=== PATIENT | female | born 1960 | race Caucasian/White ===

== ENCOUNTER → 2017-08-21 13:27 | Outpatient (REF) | payer MEDICAID, SELFPAY ==
[2017-08-21 20:18] LABS: Amphetamine/Metha Screen,Urine Negative ng/mL (<1000); Barbiturates Screen,Urine Negative ng/mL (<200); Benzodiazepines Screen,Urine Negative ng/mL (200); Cannabinoid Screen,Urine Negative ng/mL (<50); Cocaine Screen,Urine Negative ng/g (<300); Methadone Screen,Urine Negative ng/mL (<300); Opiate Screen,Urine Negative ng/mL (<300); Phencyclidine Screen,Urine Negative ng/mL (<25)
== END ==
LOC: LAB 13:27
PROVIDERS: Visit Provider Nurse Practitioner Family
DX: Z79.899 Other long term (current) drug therapy (principal)
CPT/HCPCS: 80305

== ENCOUNTER → 2019-02-22 17:10 | Outpatient (CLI) | payer MEDICAID, SELFPAY ==
[2019-02-22 17:57] LABS: Basophils # 0.1 K/mm3 (0-0.2); Basophils % 0.9 % (0.1-2.0); Eosinophils # 0.3 K/mm3 (0.0-0.4); Eosinophils % 4.5 % (0.1-12.0); Hemoglobin 14.5 g/dL (12.2-16.2); Lymphocytes # 2.4 K/mm3 (0.7-4.5); Lymphocytes % 31.5 % (10-50); Mean Corpuscular HGB Conc 32.9 g/dL (31.8-35.4); Mean Corpuscular Hemoglobin 30.7 pg (27.0-31.2); Mean Corpuscular Volume 93.3 fl (81-99); Mean Platelet Volume 8.5 fl (7.4-10.4); Monocytes # 0.5 K/mm3 (0.1-1.0); Monocytes % 6.3 % (1.7-9.3); Neutrophils # 4.3 K/mm3 (1.8-7.8); Neutrophils % 56.9 % (37.0-80.0); Platelet Count 429 K/mm3 (142-424); Red Blood Count 4.71 M/mm3 (4.20-5.40); Red Cell Distribution Width 13.2 % (11.5-17.5); White Blood Count 7.5 K/mm3 (4.8-10.8)
[2019-02-22 18:13] LABS: Alanine Aminotransferase 25 U/L (12-78); Albumin Level 3.7 gm/dL (3.4-5.0); Albumin/Globulin Ratio 1.1 (1.1-1.8); Alkaline Phosphatase 96 U/L (46-116); Anion Gap 14.9 mEq/L (5-15); Aspartate Amino Transferase 14 U/L (15-37); Bilirubin,Total 0.4 mg/dL (0.2-1.0); Blood Urea Nitrogen 15 mg/dL (7-18); Calcium 9.7 mg/dL (8.5-10.1); Carbon Dioxide 27 mmol/L (21.0-32.0); Chloride 98 mmol/L (98-107); Chol/HDL Ratio 5.2 (1-3.5); Cholesterol 198 mg/dL (140-200); Creatinine,Serum 1.23 mg/dL (0.55-1.02); Estimated Glomerular Filt Rate 45 ml/min (>60); Free T4 (Free Thyroxine) 0.91 ng/dl (0.76-1.46); GFR (African American) 54 ML/MIN (>60); Globulin 3.5 gm/dl (1.3-3.2); Glucose 111 mg/dL (74-106); HDL Cholesterol 38 mg/dL (29-89); LDL Cholesterol 113 mg/dL (0-130); Potassium 3.9 mmoL/L (3.5-5.1); Sodium 136 mmol/L (136-145); Thyroid Stimulating Hormone 0.83 uIU/ml (0.358-3.740); Total Protein,Serum 7.2 gm/dL (6.4-8.2); Triglycerides 237 mg/dL (30-200); VLDL Cholesterol 47 mg/dL (0-40)
[2019-02-25 06:12] LABS: Vitamin D 25 Hydroxy 7.1 ng/mL (30.0-100.0)
== END ==
PROVIDERS: Visit Provider Emergency Medicine
DX: R53.83 Other fatigue (principal); R73.09 Other abnormal glucose; R77.9 Abnormality of plasma protein, unspecified; Z87.898 Personal history of other specified conditions; E55.9 Vitamin D deficiency, unspecified
CPT/HCPCS: 80053; 80061; 82652; 84439; 84443; 85025

== ENCOUNTER → 2019-03-04 11:33 | Outpatient (CLI) | payer MEDICAID, SELFPAY ==
[2019-03-04 12:35] VITALS: PULSE 86; PULSE 89
== END ==
PROVIDERS: PCP Emergency Medicine; Visit Provider Emergency Medicine
DX: R06.02 Shortness of breath (principal)
CPT/HCPCS: 94060; 94618; 94640; 94726; 94729

== ENCOUNTER → 2019-05-23 14:14 | Outpatient (CLI) | payer MEDICAID, SELFPAY ==
[2019-05-23 16:47] LABS: Amphetamine/Metha Screen,Urine Negative ng/mL (<1000); Barbiturates Screen,Urine Negative ng/mL (<200); Benzodiazepines Screen,Urine Negative ng/mL (<200); Cannabinoid Screen,Urine Negative ng/mL (<50); Cocaine Screen,Urine Negative ng/mL (<300); Methadone Screen,Urine Negative ng/mL (<300); Opiate Screen,Urine Negative ng/mL (<300); Phencyclidine Screen,Urine Negative ng/mL (<25)
== END ==
PROVIDERS: Visit Provider Nurse Practitioner Family
DX: Z79.899 Other long term (current) drug therapy (principal)
CPT/HCPCS: 80305

== ENCOUNTER → 2019-09-02 09:12 | Outpatient (CLI) | payer MEDICAID, SELFPAY ==
--- NOTE | 2019-09-02 09:12 | MM_ITS ---
PROCEDURE: MM DIG SCREENING MAMM BI W/CAD CLINICAL INDICATION: screening There is a history of breast cancer patient's maternal cousin. COMPARISON: The patient had previous mammograms at [facility] but they have been purged TECHNIQUE: Standard CC and MLO images and 3D Tomosynthesis was obtained. R2 CAD reviewed. FINDINGS: Scattered fibroglandular densities are seen in both breasts. There are somewhat prominent veins inner quadrants of both breasts. There is no suspicious lesion and no suspicious microcalcifications. [place] images were reviewed. IMPRESSION: Fibrofatty parenchyma with no suspicious lesions seen BI-RAD Category: 2 Benign Finding(s) FOLLOW-UP: 1YR 1 Year Follow-up (A letter has been sent to the patient regarding results of the study.) Dictated by: Dr. Jesus Stiles MD 09/04/2019 08:[address] Jesus Stiles MD in [place] 09/04/2019 08:53
== END ==
PROVIDERS: PCP Nurse Practitioner Family; Visit Provider Emergency Medicine
DX: Z12.31 Encounter for screening mammogram for malignant neoplasm of breast (principal)
CPT/HCPCS: 77063; 77067

== ENCOUNTER → 2020-02-27 13:18 | Outpatient (CLI) | payer MEDICAID, SELFPAY | PROVIDERS: Visit Provider Physician Assistant | DX: M54.9 Dorsalgia, unspecified (principal); N39.0 Urinary tract infection, site not specified | CPT/HCPCS: 87086 ==

== ENCOUNTER → 2020-05-08 15:16 | Outpatient (CLI) | payer MEDICAID, SELFPAY ==
--- NOTE | 2020-05-08 15:18 | CA_ITS ---
APPROVED REPORT Right Lower Extremity Venous Study for DVT. Senior Mechanical Project Engineer: DANIKA Indications Lower Extremity Pain: Right Current Smoker Patient states a knot showed up on her lateral knee area 05/03/20. Patient states no known trauma. Risk Factors Obesity Current Smoker Vein Imaging CFV (R): compressive, spontaneous, phasic, augmentation FEM (R): compressive, spontaneous, phasic, augmentation POP (R): compressive, spontaneous, phasic, augmentation PTV (R): Compressible GSV (R): compressive, spontaneous, phasic, augmentation SSV (R): Compressible Peroneals (R):Compressible GAS (R): Compressible Findings No evidence of DVT in the veins scanned of the right lower extremity. Superficial thrombophlebitis seen in the RLE in area of concern. Conclusion No evidence of DVT in the veins scanned of the right lower extremity. Superficial thrombophlebitis seen in the RLE in area of concern. Electronically signed by : Roger Gustafson MD 05/09/2020 17:25:52
== END ==
PROVIDERS: PCP Emergency Medicine; Visit Provider Emergency Medicine
DX: M79.604 Pain in right leg (principal)
CPT/HCPCS: 93971

== ENCOUNTER → 2020-05-08 16:00 | Outpatient (CLI) | payer MEDICAID, SELFPAY ==
[2020-05-08 16:28] LABS: Basophils # 0.1 K/mm3 (0-0.2); Basophils % 0.8 % (0.1-2.0); Eosinophils # 0.3 K/mm3 (0.0-0.4); Eosinophils % 2.6 % (0.1-12.0); Hematocrit 48.6 % (37.0-47.0); Hemoglobin 15.6 g/dL (12.2-16.2); Lymphocytes # 3.2 K/mm3 (0.7-4.5); Lymphocytes % 32.5 % (10-50); Mean Corpuscular HGB Conc 32.1 g/dL (31.8-35.4); Mean Corpuscular Hemoglobin 30.6 pg (27.0-31.2); Mean Corpuscular Volume 95.3 fl (81-99); Mean Platelet Volume 7.8 fl (7.4-10.4); Monocytes # 0.4 K/mm3 (0.1-1.0); Neutrophils # 5.8 K/mm3 (1.8-7.8); Neutrophils % 60.1 % (37.0-80.0); Platelet Count 370 K/mm3 (142-424); Red Cell Distribution Width 13.4 % (11.5-17.5); White Blood Count 9.7 K/mm3 (4.8-10.8)
[2020-05-08 16:59] LABS: Erythrocyte Sedimentation Rate 17 mm/hr (0-30)
[2020-05-08 18:17] LABS: Alanine Aminotransferase 27 U/L (12-78); Albumin Level 4.6 g/dl (3.5-5.0); Albumin/Globulin Ratio 1.4 (1.1-1.8); Alkaline Phosphatase 90 U/L (38-126); Anion Gap 13.8 mEq/L (5-15); Aspartate Amino Transferase 31 U/L (14-36); Bilirubin,Total 0.5 mg/dl (0.2-1.3); Blood Urea Nitrogen 22 mg/dl (7-17); Calcium 10.7 mg/dl (8.4-10.2); Carbon Dioxide 30 mmol/L (22.0-30.0); Chloride 101 mmol/L (98-107); Estimated Glomerular Filt Rate 51 ml/min (>60); GFR (African American) 62 ML/MIN (>60); Globulin 3.2 g/dL (1.3-3.2); Glucose 105 mg/dl (74-100); Potassium 4.8 mmoL/L (3.5-5.1); Sodium 140 mmol/L (136-145); Total Protein,Serum 7.8 g/dl (6.3-8.2)
[2020-05-08 19:08] LABS: Vitamin B12 861 pg/mL (239-931)
[2020-06-09 20:15] LABS: Antinuclear Antibodies (ANA) POSITIVE ABNORMAL
== END ==
PROVIDERS: Visit Provider Nurse Practitioner Family
DX: G43.719 Chronic migraine without aura, intractable, without status migrainosus (principal); G47.30 Sleep apnea, unspecified; G89.29 Other chronic pain; I61.9 Nontraumatic intracerebral hemorrhage, unspecified; M25.552 Pain in left hip; M79.604 Pain in right leg; M79.605 Pain in left leg; R51.9 Headache, unspecified; R53.83 Other fatigue; Z68.39 Body mass index [BMI] 39.0-39.9, adult; Z72.0 Tobacco use; Z86.69 Personal history of other diseases of the nervous system and sense organs
CPT/HCPCS: 36415; 80053; 82607; 85025; 85651; 86038

== ENCOUNTER → 2020-05-09 10:33 | Outpatient (CLI) | payer MEDICAID, SELFPAY ==
--- NOTE | 2020-05-09 10:34 | MR_ITS ---
PROCEDURE: MR HEAD/BRAIN WO/W CON CLINICAL INDICATION: acute on chronic headaches, PT C/O H/A X 2 WEEKS WITH HX OF BRAIN SURGERY TO REMOVE TUMOR IN 2009 AND HEMORRHAGIC STROKE IN 2008. COMPARISON: No exams were available for comparison TECHNIQUE: Routine multiplanar multi echo sequences are performed without gadolinium enhancement. FINDINGS: No midline shift, mass effect, acute intracranial hemorrhage, or hydrocephalus is evident. There is no evidence of acute infarction. There are scattered periventricular and subcortical T2 white matter hyperintensities as well as increased T2 signal within the hien and may represent ischemic gliotic change from microvascular disease. There is an area of decreased T1 and decreased T2 signal within the left aspect of the lower hien on the left. This does not demonstrate contrast enhancement and may represent an old area of hemorrhage with hemosiderin deposition.. No enhancing lesions are evident. The pituitary, optic chiasm, corpus callosum, and craniocervical junction have an unremarkable appearance. No mastoid effusion or sinus air-fluid level. There is mucosal thickening of the ethmoid sinuses on both sides left more so than right. There is fat signal intensity within the left mastoid region with some indentation upon the mastoid eminence at this area suggesting prior mastoid surgery. There is minimal amount artifact at this region as well which could be due to metallic fragment. IMPRESSION: 1. No acute intracranial findings. 2. Scattered subcortical T2 white matter hyperintensities which may reflect ischemic gliotic change from microvascular disease. Differential diagnosis includes migraine headache and demyelinating process. 3. Decreased T1 and T2 signal in the left aspect of the lower hien measuring approximately 9 mm and may reflect a old area of hemorrhage. 4. Postsurgical changes left mastoid region. 5. Ethmoid sinus disease Dictated by: Roger Gustafson MD 05/10/2020 10:24 Roger Gustafson MD in [place] 05/10/2020 10:24
--- NOTE | 2020-05-09 10:34 | MR_ITS ---
PROCEDURE: MR ANGIO HEAD WO CON CLINICAL INDICATION: acute on chronic headaches, history of hem CVA PT C/O H/A X 2 WEEKS WITH HX OF BRAIN SURGERY TO REMOVE TUMOR IN 2009 AND HEMORRHAGIC STROKE IN 2008. COMPARISON: No exams were available for comparison TECHNIQUE: Routine multiplanar multi echo sequences are performed without gadolinium enhancement. FINDINGS: No aneurysm, arteriovenous malformation, or major intracranial occlusive process is evident. There is persistent origin of the left posterior cerebral artery as a normal variant. Single-shot MRV shows no obvious sagittal sinus thrombosis. IMPRESSION: Negative MRA of the brain Dictated by: Roger Gustafson MD 05/10/2020 10:43 Roger Gustafson MD in [place] 05/10/2020 10:43
--- NOTE | 2020-05-09 12:08 | XR_ITS ---
PROCEDURE: XR HIP LT 2-3V W/PELVIS CLINICAL INDICATION: left hip pain COMPARISON: No exams were available for comparison FINDINGS: There are minimal osteoarthritic changes of the left hip. Along the inferior aspect of the left femoral neck there is a rounded calcific density measuring 12 mm suggesting a loose body. No fracture or dislocation. No lytic or blastic change. IMPRESSION: Mild osteoarthritic change left hip with loose body along the inferior aspect of the femoral neck Dictated by: Roger Gustafson MD 05/09/2020 12:42 Roger Gustafson MD in [place] 05/09/2020 12:42
--- NOTE | 2020-05-09 12:10 | XR_ITS ---
PROCEDURE: XR HIP RT 2-3V W/PELVIS CLINICAL INDICATION: HIP PAIN COMPARISON: No exams were available for comparison FINDINGS: Minimal osteoarthritic change. No fracture or dislocation. No lytic or blastic change. IMPRESSION: Minimal osteoarthritic change right hip Dictated by: Roger Gustafson MD 05/09/2020 12:41 Roger Gustafson MD in [place] 05/09/2020 12:41
== END ==
PROVIDERS: PCP Emergency Medicine; Visit Provider Specialist
DX: G43.719 Chronic migraine without aura, intractable, without status migrainosus (principal); R51.9 Headache, unspecified; I61.9 Nontraumatic intracerebral hemorrhage, unspecified; G47.30 Sleep apnea, unspecified; Z68.39 Body mass index [BMI] 39.0-39.9, adult; Z72.0 Tobacco use
CPT/HCPCS: 70544; 70553; 73502; A9576

== ENCOUNTER → 2020-05-30 13:20 | Outpatient (CLI) | payer MEDICAID, SELFPAY ==
[2020-05-30 15:10] LABS: Coronavirus 19 IgG Antibody Negative (Negative); Coronavirus 19 IgM Antibody Negative (Negative)
== END ==
PROVIDERS: Visit Provider Nurse Practitioner Family
DX: Z01.818 Encounter for other preprocedural examination (principal); G47.33 Obstructive sleep apnea (adult) (pediatric)
CPT/HCPCS: 36415; 86328

== ENCOUNTER → 2020-06-05 10:39 | Outpatient (POV) | payer MEDICAID, SELFPAY | PROVIDERS: Visit Provider Otolaryngology | DX: Z00.00 Encounter for general adult medical examination without abnormal findings (principal) ==

== ENCOUNTER → 2020-08-21 12:16 | Outpatient (CLI) | payer MEDICAID, SELFPAY ==
[2020-08-21 14:22] LABS: Coronavirus 19 IgG Antibody Negative (Negative); Coronavirus 19 IgM Antibody Negative (Negative)
== END ==
PROVIDERS: Visit Provider Specialist
DX: Z01.812 Encounter for preprocedural laboratory examination (principal)
CPT/HCPCS: 36415; 86328

== ENCOUNTER → 2020-08-22 20:03 | Outpatient (CLI) | payer MEDICAID, SELFPAY | PROVIDERS: PCP Emergency Medicine; Visit Provider Specialist | DX: G47.33 Obstructive sleep apnea (adult) (pediatric) (principal); E66.9 Obesity, unspecified | CPT/HCPCS: 95810 ==

== ENCOUNTER 2021-03-15 16:29 | Inpatient (IN) | payer MEDICAID, SELFPAY ==
[2021-03-15] VITALS (9 sets, daily range): BP systolic 91–141; BP diastolic 50–90; PULSE 70–117; RESP 16–20; TEMP 36.6–37; O2SAT 93–98; BMI 37.8; BMI 38.0
--- NOTE | 2021-03-15 16:46 | HMH.EDGENADL ---
ED Disposition Clinical Impression: NELL (acute kidney injury), Transaminitis, Lesion of bladder Abdominal pain Qualifiers: Abdominal location: generalized Qualified Code(s): R10.84 - Generalized abdominal pain Sepsis Qualifiers: Sepsis type: sepsis due to unspecified organism Sepsis acute organ dysfunction status: with acute organ dysfunction Severe sepsis acute organ dysfunction type: acute renal failure Acute renal failure type: unspecified Severe sepsis shock status: without septic shock Qualified Code(s): A41.9 - Sepsis, unspecified organism; R65.20 - Severe sepsis without septic shock; N17.9 - Acute kidney failure, unspecified Sepsis with acute liver failure and septic shock Qualifiers: Sepsis type: sepsis due to unspecified organism Hepatic coma status: without hepatic coma Qualified Code(s): A41.9 - Sepsis, unspecified organism; R65.21 - Severe sepsis with septic shock; K72.00 - Acute and subacute hepatic failure without coma Disposition: Admitted As Inpatient Condition on Discharge: Fair Instructions: DI for Acute Abdominal Pain Referrals: Cipriano Clark MD [Primary Care Provider] - Time of Disposition: 19:18 - Critical Care Critical Care Time: Yes Attestation: On 03/15/21, the high probability of a clinically significant, sudden or life threatening deterioration of the following system(s) required my full and direct attention, intervention and personal management. The time I documented below is in addition to time spent performing reported procedures but includes the following listed in this critical care notation. Total Critical Care Time: 35 Vital system(s) involved:: Renal Failure, Shock (Septic) My critical care processes included: Assessment & monitoring of V/S, Initial and Re-exams, Data Review/Interpretation, Coordinating Care, Medication Orders and management, Documentation Medical Decision Making - Medical Records Medical records reviewed: Yes: I reviewed the patient's medical records. - Elian Inquiry Pt receiving controlled substance: No Vital Signs: 03/15/21 16:29 Temperature 98.6 F Temperature Source Oral Pulse Rate [Radial] 117 H Respiratory Rate 16 Blood Pressure [Right Arm] 104/63 L Blood Pressure Mean [Right Arm] 76 Blood Pressure Position [Right Arm] Sitting 02 Sat by Pulse Oximetry 98 Oxygen Delivery Method Room Air - Lab Data Lab results reviewed: Yes: I reviewed the patient's lab results. Lab Results 03/15/21 16:58: WBC 20.4 H*, RBC 5.42 H, Hgb 16.4 H, Hct 50.9 H, MCV 94.0, MCH 30.3, MCHC 32.3, RDW 13.7, Plt Count 462 H, MPV 9.1, Neut % (Auto) 86.5 H, Lymph % (Auto) 6.9 L, [place] % (Auto) 5.4, Eos % (Auto) 0.5, Baso % (Auto) 0.6, Neut # (Auto) 17.7 H, Lymph # (Auto) 1.4, [place] # (Auto) 1.1 H, Eos # (Auto) 0.1, Baso # (Auto) 0.1, Total Counted 100, Neutrophils % (Manual) 85 H, Lymphocytes % (Manual) 7 L, Monocytes % (Manual) 8, Platelet Estimate Normal, RBC Morphology Normal 03/15/21 16:58: Sodium 128 L, Potassium 4.9, Chloride 87 L, Carbon Dioxide 16 L, Anion Gap 29.9 H, BUN 103 H*, Creatinine 5.50 H, Estimated Creat Clear 16, Estimated GFR 8 L*, Est GFR ( Amer) 10 L*, Glucose 132 H, Calcium 8.9, Total Bilirubin 1.0, AST 647 H*, ALT 918 H*, Alkaline Phosphatase 101, Total Protein 8.2, Albumin 4.2, Globulin 4.0 H, Albumin/Globulin Ratio 1.1 03/15/21 16:58: Lipase 32 03/15/21 18:00: Lactate 2.7 H 03/15/21 18:40: Urine Color Yellow, Urine Appearance Clear, Urine pH 5.0, Ur Specific [place] 1.025, Urine Protein 1+, Urine Glucose (UA) Negative, Urine Ketones Negative, Urine Blood 3+, Urine Nitrate Negative, Urine Bilirubin 2+ A, Urine Urobilinogen 1.0, Ur Leukocyte Esterase 3+ A Result diagrams: 03/15/21 16:58 03/15/21 16:58 Orders (Tests/Meds): ED MEDICATIONS Generic Name Dose Route Start Last Admin Trade Name Freq PRN Reason Stop Dose Admin Lactated Ringer's 1,000 mls @ 999 mls/hr 03/15/21 17:15 03/15/21 17:20 Lactated Ringer's 1000 Ml Bag IV 03/15/21 18:15
[2021-03-15 17:17] LABS: Chloride 87 mmol/L (98-107)
[2021-03-15 17:18] LABS: Potassium 4.9 mmoL/L (3.5-5.1); Sodium 128 mmol/L (136-145)
[2021-03-15 17:20] LABS: Alkaline Phosphatase 101 U/L (38-126); Aspartate Amino Transferase 647 U/L (14-36); Carbon Dioxide 16 mmol/L (22.0-30.0); Lipase 32 U/L (23-300)
[2021-03-15 17:21] LABS: Albumin Level 4.2 g/dl (3.5-5.0); Albumin/Globulin Ratio 1.1 (1.1-1.8); Basophils # 0.1 K/mm3 (0-0.2); Basophils % 0.6 % (0.1-2.0); Calcium 8.9 mg/dl (8.4-10.2); Eosinophils # 0.1 K/mm3 (0.0-0.4); Eosinophils % 0.5 % (0.1-12.0); Glucose 132 mg/dl (74-100); Hematocrit 50.9 % (37.0-47.0); Hemoglobin 16.4 g/dL (12.2-16.2); Lymphocytes # 1.4 K/mm3 (0.7-4.5); Lymphocytes % 6.9 % (10-50); Mean Corpuscular HGB Conc 32.3 g/dL (31.8-35.4); Mean Corpuscular Hemoglobin 30.3 pg (27.0-31.2); Mean Platelet Volume 9.1 fl (7.4-10.4); Monocytes # 1.1 K/mm3 (0.1-1.0); Monocytes % 5.4 % (1.7-9.3); Neutrophils # 17.7 K/mm3 (1.8-7.8); Neutrophils % 86.5 % (37.0-80.0); Platelet Count 462 K/mm3 (142-424); Red Blood Count 5.42 M/mm3 (4.20-5.40); Red Cell Distribution Width 13.7 % (11.5-17.5); Total Protein,Serum 8.2 g/dl (6.3-8.2); White Blood Count 20.4 K/mm3 (4.8-10.8)
[2021-03-15 17:22] LABS: Anion Gap 29.9 mEq/L (5-15)
[2021-03-15 17:27] LABS: Alanine Aminotransferase 918 U/L (12-78); Creatinine Clearance Estimated 16 mL/min (50-200); Estimated Glomerular Filt Rate 8 ml/min (>60); GFR (African American) 10 ML/MIN (>60)
[2021-03-15 17:28] LABS: Blood Urea Nitrogen 103 mg/dl (7-17)
[2021-03-15 17:32] LABS: MANUAL DIFFERENTIAL MANUAL DIFFERENTIAL (MANUAL DIFF)
--- NOTE | 2021-03-15 17:39 | PC.NURSE ---
lab called critical of BUN 103 Creat 5.50. notified
--- NOTE | 2021-03-15 17:42 | CT_ITS ---
PROCEDURE INFORMATION: Exam: CT Abdomen And Pelvis Without Contrast Exam date and time: 03/15/2021 5:42 PM Age: 61 years old Clinical indication: Abdominal tenderness and nausea and other: Dehydration and diarrhea; Prior surgery; Surgery date: 6+ months; Surgery type: C section, appendix, gb; Additional info: V/d, diffuse pain, dehydration TECHNIQUE: Imaging protocol: Computed tomography of the abdomen and pelvis without contrast. Radiation optimization: All CT scans at this facility use at least one of these dose optimization techniques: automated exposure control; mA and/or kV adjustment per patient size (includes targeted exams where dose is matched to clinical indication); or iterative reconstruction. COMPARISON: CR XR HIP LT 2-3V W/PELVIS 05/09/2020 12:12 PM FINDINGS: Lungs: Calcified pulmonary nodule seen in the right base. Mild bibasilar atelectasis. Liver: Normal. No mass. Gallbladder and bile ducts: Gallbladder is either surgically absent or contracted. Pancreas: Normal. No ductal dilation. Spleen: Normal. No splenomegaly. Adrenal glands: Normal. No mass. Kidneys and ureters: Hyperattenuating bilateral medullary pyramids. No hydronephrosis. Stomach and bowel: Mild diverticulosis noted. No CT evidence of diverticulitis. There is some mild diffuse wall thickening of the colon and small bowel. Numerous loops of mildly dilated small bowel are seen. Mild stranding noted as well. A transition point is not identified. These findings are most compatible with ileus. Obstruction not favored. Appendix: No evidence of appendicitis. Intraperitoneal space: Trace free fluid. Vasculature: Unremarkable. No abdominal aortic aneurysm. Lymph nodes: Mildly prominent retroperitoneal lymph nodes. Urinary bladder: Bladder is under distended. There is a partially calcified structure that appears to be arising from the anterior superior bladder. It measures about 43 x 20 mm in transverse dimensions and about 3 cm in the CC dimension. Reproductive: Status post hysterectomy. Bones/joints: Unremarkable. No acute fracture. Soft tissues: Unremarkable. Other findings: Elevated left hemidiaphragm. IMPRESSION: 1. Findings most compatible with enteritis/colitis and associated ileus. No transition point seen. Consider follow-up abdominal series if obstruction is a clinical concern. 2. There is a calcified soft tissue structure related to the bladder wall. This is concerning for potential neoplasm. Urology referral is recommended. 3. 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
[2021-03-15 18:07] LABS: Lymphocytes % 7 % (10-50); Monocytes % 8 % (2-9); Neutrophils % 85 % (42-76); Platelet Estimate Normal; RBC Morphology Normal; Total Cells Counted 100
[2021-03-15 18:24] LABS: Lactic Acid 2.7 mmol/L (0.7-2.1)
[2021-03-15 18:44] LABS: Microscopic, Urine URINE MICROSCOPIC (MICROSCOPIC)
[2021-03-15 18:51] LABS: Appearance,Urine CLEAR (Clear); Blood, Urine 3+ (Negative); Color,Urine YELLOW (Yellow); Glucose,Urine (UA) Negative (Negative); Ketones,Urine Negative (Negative); Leukocyte Esterase,Urine 3+ (Negative); Nitrate,Urine Negative (Negative); Protein,Urine 1+ (Negative); Specific Gravity, Urine 1.025 (1.005-1.030)
[2021-03-15 18:52] LABS: Bilirubin,Urine 2+ (Negative)
--- NOTE | 2021-03-15 19:19 | XR_ITS ---
PROCEDURE INFORMATION: Exam: XR Chest Exam date and time: 03/15/2021 7:19 PM Age: 61 years old Clinical indication: Other: Sepsis TECHNIQUE: Imaging protocol: XR of the chest. Views: 2 views. COMPARISON: CT ABDOMEN PELVIS WO CON 03/15/2021 6:05 PM FINDINGS: Lungs: Mild bibasilar atelectasis worse on the left. Lingular opacity also favored to represent atelectasis. Infiltrate less likely. Pleural spaces: Unremarkable. No pleural effusion. No pneumothorax. Heart/Mediastinum: Unremarkable. No cardiomegaly. Diaphragm: Elevated left hemidiaphragm. Bones/joints: Unremarkable. Gastrointestinal tract: Mildly dilated loops of bowel better seen on CT today. IMPRESSION: Left greater than right bibasilar atelectasis. A lingular infiltrate is possible. Consider follow-up PA and lateral.
[2021-03-15 19:20] LABS: Coronavirus 19, PCR Not Detected (NotDetected); Influenza A, PCR Not Detected (NotDetected); Influenza B, PCR Not Detected (NotDetected)
[2021-03-15 19:34] LABS: Bacteria,Urine 2+ /lpf
[2021-03-15 19:35] LABS: Yeast,Urine 1+ /lpf
--- NOTE | 2021-03-15 20:07 | PC.NURSE ---
attempt to call report, receiving nurse busy at this time and will call back.
--- NOTE | 2021-03-15 20:35 | HMH.HP ---
*Admission Date: 03/15/21 *Chief complaint: weakness *History of present illness: this patient reports weak with dec po intake - pt was seen in the ed -1yo F presents the emergency department secondary abdominal pain. Patient reports she was seen at her PCPs clinic, Dr. Clark, and directed to the emergency department for further testing. She states she developed abdominal pain with diarrhea on Thursday. States the diarrhea stopped yesterday. She has had intermittent fevers. She denies vomiting. She denies seeing blood in her stool. Had a colonoscopy in the past with normal result. No history of IBD, IBS, colitis. Status post appendectomy, cholecystectomy, hysterectomy. 1yo F presents the emergency department secondary abdominal pain. Patient reports she was seen at her PCPs clinic, Dr. Clark, and directed to the emergency department for further testing. She states she developed abdominal pain with diarrhea on Thursday. States the diarrhea stopped yesterday. She has had intermittent fevers. She denies vomiting. She denies seeing blood in her stool. Had a colonoscopy in the past with normal result. No history of IBD, IBS, colitis. Status post appendectomy, cholecystectomy, hysterectomy. pt admitted for ivf at this time [facility] History I have reviewed the patient's past medical history: Yes Medical History: Reports:: Chronic Obstructive Pulmonary Disease (COPD), Cerebrovascular Accident, Gastroesophageal Reflux Disease(GERD), Hypertension, Migraine *Have you ever received a pneumonia vaccine?: Yes *Have you received a flu vaccine this season?: Yes Other Medical History: Reports: Arthritis, Fibromyalgia Laterality Cases: Right: Arthroscopy Knee Other Surgeries: Yes: Colonoscopy, , Hysterectomy-Total Amputation: No Fractures: No - *Social History Smoking Status: Current every day smoker Tobacco Type: cigarettes # Packs/Day (cigarettes): 1 Alcohol Intake: never Alcohol Intake Frequency:: other Substance Use Type: denies use *Occupational Status:: unemployed Housing: apartment Household Members: other *Travel in the last 8 weeks: None Family Hx:: Cancer, Hypertension, Alcoholism Review of Systems - Review of Systems Review of systems:: pertinent systems reviewed and negative unless documented below - Constitutional Reports weakness - Eyes Denies discharge - ENT Reports dry mouth - *Cardiovascular Denies shortness of breath - *Respiratory Denies cough - *Gastrointestinal Reports abdominal pain, Reports loose stools, Reports nausea, Reports vomiting - *Genitourinary Denies blood in urine - *Musculoskeletal Denies joint pain - Integumentary/Breasts Denies rash - *Neurologic Denies seizure-like activity - Psychiatric Denies thoughts of hurting/killing yourself Meds Home Medications Medication Instructions Recorded Confirmed Type galcanezumab-gnlm 120 mg/mL 120 mg SQ QMONTH #1 ml 05/03/20 03/15/21 Rx subcutaneous pen injector Albuterol Sulfate [Proventil Hfa] See Rx Instructions .ROUTE .COMPLEX 03/15/21 03/15/21 History Budesonide/Formoterol Fumarate See Rx Instructions .ROUTE .COMPLEX 03/15/21 03/15/21 History [Budesonide-Formoterol 160-4.5] Cetirizine HCl 10 mg PO DAILY 03/15/21 03/15/21 History Cholecalciferol (Vitamin D3) 1,000 unit PO DAILY 03/15/21 03/15/21 History [Vitamin D3 1,000 Unit Cap] Duloxetine HCl [Cymbalta] 60 mg PO DAILY 03/15/21 03/15/21 History Fluticasone Propionate 16 gm IN BID 03/15/21 03/15/21 History Furosemide [Furosemide 20mg Tab*] 20 mg PO DAILY 03/15/21 03/15/21 History Gabapentin 600 mg PO TID 03/15/21 03/15/21 History Ibuprofen 800 mg PO TID 03/15/21 03/15/21 History Ipratropium [place] [Atrovent HFA] 12.9 gm IN QID 03/15/21 03/15/21 History Lisinopril/Hydrochlorothiazide See Rx Instructions PO DAILY 03/15/21 03/15/21 History [Lisinopril-Hctz 20-25 mg Tab*] Meclizine HCl [[place] 2] 25 mg PO DAILY 03/15/21 03/15/21 History Nystatin 10 ml PO QID 03/15/2102/18
--- NOTE | 2021-03-15 20:59 | PC.NURSE ---
PT ARRIVED TO FLOOR VIA STRETCHER FROM ED W/STAFF AT 2100
[2021-03-15 22:10] LABS: Reflex Lactic Add Lactic Reflex
[2021-03-16 04:00] VITALS: BP 118/66; PULSE 68; RESP 18; TEMP 36.6; O2SAT 96
[2021-03-16 05:09] VITALS: BMI 38.0
[2021-03-16 06:34] LABS: Chloride 96 mmol/L (98-107); Potassium 3.6 mmoL/L (3.5-5.1); Sodium 128 mmol/L (136-145)
[2021-03-16 06:36] LABS: Basophils % 0.3 % (0.1-2.0); Eosinophils # 0.1 K/mm3 (0.0-0.4); Eosinophils % 0.4 % (0.1-12.0); Hematocrit 42.2 % (37.0-47.0); Lymphocytes # 1.4 K/mm3 (0.7-4.5); Lymphocytes % 10.1 % (10-50); Mean Corpuscular HGB Conc 33.7 g/dL (31.8-35.4); Mean Corpuscular Hemoglobin 31.4 pg (27.0-31.2); Mean Corpuscular Volume 93.1 fl (81-99); Mean Platelet Volume 8.5 fl (7.4-10.4); Monocytes # 0.8 K/mm3 (0.1-1.0); Monocytes % 5.5 % (1.7-9.3); Neutrophils # 11.8 K/mm3 (1.8-7.8); Neutrophils % 83.6 % (37.0-80.0); Platelet Count 370 K/mm3 (142-424); Red Blood Count 4.53 M/mm3 (4.20-5.40); Red Cell Distribution Width 13.5 % (11.5-17.5); White Blood Count 14.1 K/mm3 (4.8-10.8)
[2021-03-16 06:37] LABS: Anion Gap 19.6 mEq/L (5-15); Carbon Dioxide 16 mmol/L (22.0-30.0)
[2021-03-16 06:38] LABS: Glucose 93 mg/dl (74-100)
[2021-03-16 06:44] LABS: Creatinine Clearance Estimated 26 mL/min (50-200); Estimated Glomerular Filt Rate 14 ml/min (>60); GFR (African American) 17 ML/MIN (>60)
[2021-03-16 06:46] LABS: Blood Urea Nitrogen 91 mg/dl (7-17)
[2021-03-16 06:59] LABS: Hemoglobin 14.3 g/dL (12.2-16.2)
--- NOTE | 2021-03-16 07:33 | PC.NURSE ---
Maria De Jesus from lab called with a critical BUN of 91 Name and verified x2. Notified
[2021-03-16 08:00] VITALS: BP 110/63; PULSE 97; RESP 18; TEMP 36.7; O2SAT 93
--- NOTE | 2021-03-16 08:18 | HMH.ACPN2 ---
Internal Medicine - PN: Subj *Date: 03/16/21 *Time: 09:05 Interval history: doing better this am -labs improved Exam Vital signs and Labs for Last 24 Hours: Temp Pulse Resp BP Pulse Ox 98.0 F 97 H 18 110/63 93 L 03/16/21 08:00 03/16/21 08:00 03/16/21 08:00 03/16/21 08:00 03/16/21 08:00 Laboratory Results - last 24 hr 03/15/21 16:58: WBC 20.4 H*, RBC 5.42 H, Hgb 16.4 H, Hct 50.9 H, MCV 94.0, MCH 30.3, MCHC 32.3, RDW 13.7, Plt Count 462 H, MPV 9.1, Neut % (Auto) 86.5 H, Lymph % (Auto) 6.9 L, [place] % (Auto) 5.4, Eos % (Auto) 0.5, Baso % (Auto) 0.6, Neut # (Auto) 17.7 H, Lymph # (Auto) 1.4, [place] # (Auto) 1.1 H, Eos # (Auto) 0.1, Baso # (Auto) 0.1, Total Counted 100, Neutrophils % (Manual) 85 H, Lymphocytes % (Manual) 7 L, Monocytes % (Manual) 8, Platelet Estimate Normal, RBC Morphology Normal 03/15/21 16:58: Sodium 128 L, Potassium 4.9, Chloride 87 L, Carbon Dioxide 16 L, Anion Gap 29.9 H, BUN 103 H*, Creatinine 5.50 H, Estimated Creat Clear 16, Estimated GFR 8 L*, Est GFR ( Amer) 10 L*, Glucose 132 H, Calcium 8.9, Total Bilirubin 1.0, AST 647 H*, ALT 918 H*, Alkaline Phosphatase 101, Total Protein 8.2, Albumin 4.2, Globulin 4.0 H, Albumin/Globulin Ratio 1.1 03/15/21 16:58: Lipase 32 03/15/21 18:00: Lactate 2.7 H 03/15/21 18:40: Urine Color Yellow, Urine Appearance Clear, Urine pH 5.0, Ur Specific [place] 1.025, Urine Protein 1+, Urine Glucose (UA) Negative, Urine Ketones Negative, Urine Blood 3+, Urine Nitrate Negative, Urine Bilirubin 2+ A, Urine Urobilinogen 1.0, Ur Leukocyte Esterase 3+ A, Urine RBC 10-20, Urine WBC 5-10, Ur Squamous Epith Cells 3-5, Urine Bacteria 2+, Urine Yeast 1+ 03/15/21 19:15: SARS-CoV-2 (PCR) Not detected, Influenza A Untype (PCR) Not detected, Influenza Type B (PCR) Not detected 03/15/21 22:16: Lactate 1.0 03/16/21 06:11: WBC 14.1 H D, RBC 4.53, Hgb 14.3 D, Hct 42.2, MCV 93.1, MCH 31.4 H, MCHC 33.7, RDW 13.5, Plt Count 370, MPV 8.5, Neut % (Auto) 83.6 H, Lymph % (Auto) 10.1, [place] % (Auto) 5.5, Eos % (Auto) 0.4, Baso % (Auto) 0.3, Neut # (Auto) 11.8 H, Lymph # (Auto) 1.4, [place] # (Auto) 0.8, Eos # (Auto) 0.1, Baso # (Auto) 0.0 03/16/21 06:11: Sodium 128 L, Potassium 3.6 D, Chloride 96 L, Carbon Dioxide 16 L, Anion Gap 19.6 H, BUN 91 H, Creatinine 3.30 H D, Estimated Creat Clear 26, Estimated GFR 14 L*, Est GFR ( Amer) 17 L* D, Glucose 93 D, Calcium 8.0 L I & O for Last 24 hours: Intake & Output 03/13/21 03/14/21 03/15/21 03/16/21 11:59 11:59 11:59 11:59 Intake Total 3285 / 3285 Balance 3285 / 3285 Weight 201 lb 3 oz - Constitutional no acute distress, obese - *Routine HEENT Exam Head: Present: normocephalic Eye: Present: EOMI, PERRL ENT: Present: mucous membranes dry - *Routine Neck Exam Present: supple. Absent: JVD - *Routine Respiratory Exam Present: CTA bilaterally. Absent: respiratory distress - *Routine Cardiovascular Exam Present: RRR, murmur - *Routine Abdominal Exam Present: soft - *Routine Extremities Exam Absent: calf tenderness - *Routine Skin Exam Present: intact - *Routine Neurological Exam Present: alert, CN II-XII intact - Routine Psychiatric Exam Present: normal affect Assessment and Plan (1) Severe sepsis with acute organ dysfunction Status: Acute Category: Medical Code(s): A41.9 - Sepsis, unspecified organism; R65.20 - Severe sepsis without septic shock (2) NELL (acute kidney injury) Status: Acute Category: Medical Code(s): N17.9 - Acute kidney failure, unspecified (3) Transaminitis Status: Acute Category: Medical Code(s): R74.01 - Elevation of levels of liver transaminase levels (4) Lesion of bladder Status: Acute Category: Medical Code(s): N32.9 - Bladder disorder, unspecified (5) Tobacco use Status: Chronic Category: Social Hx Code(s): Z72.0 - Tobacco use (6) Obesity (BMI 30-39.9) Status: Chronic Category: Medical Code(s): E66.9 - Obesity, unspecified (7) Neuropathy
--- NOTE | 2021-03-16 10:56 | HMH.PHAINT ---
MEDICATION RECONCILIATION COMPLETE USING LIST FROM RECENT MD OFFICE VISIT, FERNANDA REPORT, AND EXTERNAL PHARMACY FILL HISTORY.
--- NOTE | 2021-03-16 10:56 | HMH.PHAVTE ---
[facility] Pharmacy VTE Monitoring - Patient Demographics Admission date: 03/15/21 Report Date: 03/16/21 Time: 10:56 Allergies/Adverse Reactions: Patient Allergies umeclidinium [From Incruse Ellipta] Allergy (Intermediate, Verified 03/08/21 13:48) Headache, UPSET STOMACH morphine [MORPHINE] Allergy (Unknown, Verified 03/08/21 13:48) HIVES/SWELLING Sulfa (Sulfonamide Antibiotics) [SULFA (SULFONAMIDE ANTIBIOTICS)] Allergy (Unknown, Verified 03/08/21 13:48) VOMITING/RASH Height: 1.55 m Weight: 91.257 kg Patient Problems: Current Active Problems NELL (acute kidney injury) (Acute) Transaminitis (Acute) Abdominal pain (Acute) Sepsis (Acute) Lesion of bladder (Acute) Sepsis with acute liver failure and septic shock (Acute) Severe sepsis with acute organ dysfunction (Acute) Hyponatremia (Acute) UTI (urinary tract infection) (Acute) Enteritis (Acute) Tobacco use (Chronic) Obesity (BMI 30-39.9) (Chronic) Neuropathy (Chronic) - VTE Risk Labs: VTE Related Lab Results Hgb 14.3 g/dL (12.2-16.2) D 03/16/21 06:11 Hct 42.2 % (37.0-47.0) 03/16/21 06:11 Plt Count 370 K/mm3 (142-424) 03/16/21 06:11 BUN 91 mg/dl (7-17) H 03/16/21 06:11 Creatinine 3.30 mg/dl (0.52-1.04) H D 03/16/21 06:11 Estimated Creat Clear 26 mL/min (50-200) 03/16/21 06:11 Was VTE Risk Assessment Performed: Yes VTE Score: 4 VTE Risk Level: Low Risk Clinical Trial Participant: No - Prophylaxis VTE Prophylaxis Ordered?: Yes Types of VTE Prophylaxis: TEDS Knee High Location of Applied Device: Bilateral Lower Extremeties
[2021-03-16 12:56] VITALS: BP 111/70; PULSE 96; RESP 18; TEMP 36.6; O2SAT 94
[2021-03-16 16:00] VITALS: BP 118/72; PULSE 90; RESP 17; TEMP 36.7; O2SAT 95
[2021-03-17] VITALS: BP 136/78; PULSE 74; RESP 18; TEMP 36.6; O2SAT 97
[2021-03-17 04:00] VITALS: BP 148/60; PULSE 76; RESP 18; TEMP 36.6; O2SAT 95
--- NOTE | 2021-03-17 04:23 | PC.NURSE ---
A&OX4. TOLERATING RA WELL. PT HAS HAD C/O NA AND HEART BURN T/O NIGHT. CALLED VELVET STEAMER MD NICOLE. GAVE PT X1 DOSE OF PHENERGAN AND PROTONIX. PT STATES SOME IMPROVEMENT. PT UP INDEPENDENTLY IN ROOM. DRINKING WATER T/O SHIFT. NO OTHER C/O THUS FAR, VSS WILL CONTINUE TO MONITOR.
[2021-03-17 05:00] VITALS: BMI 38.0
[2021-03-17 07:41] LABS: Basophils # 0.1 K/mm3 (0-0.2); Basophils % 0.3 % (0.1-2.0); Eosinophils % 0.1 % (0.1-12.0); Hematocrit 41.7 % (37.0-47.0); Hemoglobin 13.8 g/dL (12.2-16.2); Lymphocytes % 6.4 % (10-50); Mean Corpuscular HGB Conc 33.1 g/dL (31.8-35.4); Mean Corpuscular Hemoglobin 30.8 pg (27.0-31.2); Mean Corpuscular Volume 93.1 fl (81-99); Mean Platelet Volume 8.6 fl (7.4-10.4); Monocytes # 0.9 K/mm3 (0.1-1.0); Monocytes % 5.7 % (1.7-9.3); Neutrophils # 13.9 K/mm3 (1.8-7.8); Neutrophils % 87.4 % (37.0-80.0); Platelet Count 393 K/mm3 (142-424); Red Blood Count 4.48 M/mm3 (4.20-5.40); Red Cell Distribution Width 13.4 % (11.5-17.5); White Blood Count 15.9 K/mm3 (4.8-10.8)
[2021-03-17 07:43] LABS: Chloride 103 mmol/L (98-107); Potassium 3.1 mmoL/L (3.5-5.1); Sodium 136 mmol/L (136-145)
[2021-03-17 07:45] LABS: Blood Urea Nitrogen 68 mg/dl (7-17); Creatinine Clearance Estimated 39 mL/min (50-200); Estimated Glomerular Filt Rate 23 ml/min (>60); GFR (African American) 28 ML/MIN (>60)
[2021-03-17 07:46] LABS: Alanine Aminotransferase 312 U/L (12-78); Alkaline Phosphatase 109 U/L (38-126); Anion Gap 18.1 mEq/L (5-15); Aspartate Amino Transferase 113 U/L (14-36); Bilirubin,Total 0.5 mg/dl (0.2-1.3); Calcium 8.3 mg/dl (8.4-10.2); Carbon Dioxide 18 mmol/L (22.0-30.0); Globulin 2.9 g/dL (1.3-3.2); Glucose 92 mg/dl (74-100); Magnesium 1.9 mg/dl (1.6-2.3); Total Protein,Serum 5.9 g/dl (6.3-8.2)
[2021-03-17 08:00] VITALS: BP 128/70; PULSE 98; RESP 20; TEMP 36.8; O2SAT 94
[2021-03-17 08:12] LABS: MANUAL DIFFERENTIAL MANUAL DIFFERENTIAL (MANUAL DIFF)
[2021-03-17 10:39] LABS: Eosinophils % 1 % (0-3); Lymphocytes % 10 % (10-50); Monocytes % 6 % (2-9); Neutrophils % 70 % (42-76); Platelet Estimate Normal; Total Cells Counted 100
[2021-03-17 12:00] VITALS: BP 126/75; PULSE 92; RESP 18; TEMP 36.8; O2SAT 95
--- NOTE | 2021-03-17 13:26 | HMH.ACPN2 ---
Internal Medicine - PN: Subj *Date: 03/18/21 *Time: 01:20 Interval history: labs better but has gerd sx - Exam Vital signs and Labs for Last 24 Hours: Temp Pulse Resp BP Pulse Ox 98.2 F 92 H 18 126/75 95 03/17/21 12:00 03/17/21 12:00 03/17/21 12:00 03/17/21 12:00 03/17/21 12:00 Laboratory Results - last 24 hr 03/17/21 06:41: WBC 15.9 H, RBC 4.48, Hgb 13.8, Hct 41.7, MCV 93.1, MCH 30.8, MCHC 33.1, RDW 13.4, Plt Count 393, MPV 8.6, Neut % (Auto) 87.4 H, Lymph % (Auto) 6.4 L, [place] % (Auto) 5.7, Eos % (Auto) 0.1, Baso % (Auto) 0.3, Neut # (Auto) 13.9 H, Lymph # (Auto) 1.0, [place] # (Auto) 0.9, Eos # (Auto) 0.0, Baso # (Auto) 0.1, Total Counted 100, Neutrophils % (Manual) 70, Band Neutrophils % 10.0 H, Lymphocytes % (Manual) 10, Atypical Lymphs % 1.0, Monocytes % (Manual) 6, Eosinophils % (Manual) 1, Metamyelocytes % 2.0 H, Platelet Estimate Normal 03/17/21 06:41: Sodium 136, Potassium 3.1 L, Chloride 103, Carbon Dioxide 18 L, Anion Gap 18.1 H, BUN 68 H D, Creatinine 2.20 H D, Estimated Creat Clear 39, Estimated GFR 23 L, Est GFR ( Amer) 28 L D, Glucose 92, Calcium 8.3 L, Magnesium 1.9, Total Bilirubin 0.5, AST 113 H D, ALT 312 H*, Alkaline Phosphatase 109, Total Protein 5.9 L D, Albumin 3.0 L, Globulin 2.9, Albumin/Globulin Ratio 1.0 L I & O for Last 24 hours: Intake & Output 03/15/21 03/16/21 03/17/21 03/18/21 11:59 11:59 11:59 11:59 Intake Total 3285 / 3285 480 / 480 Balance 3285 / 3285 480 / 480 Weight 201 lb 3 oz 201 lb 3 oz Microbiology Reports for the Last 24 Hours: Microbiology 03/15/21 18:40 Urine,Clean Catch Urine Culture - Preliminary NO GROWTH AFTER 24 HOURS - Constitutional no acute distress, obese - *Routine HEENT Exam Head: Present: normocephalic Eye: Present: EOMI, PERRL ENT: Present: mucous membranes dry - *Routine Neck Exam Present: supple. Absent: JVD - *Routine Respiratory Exam Present: CTA bilaterally - *Routine Cardiovascular Exam Present: RRR, murmur - *Routine Abdominal Exam Present: soft, tenderness. Absent: distended, rebound, guarding - *Routine Skin Exam Present: intact - *Routine Neurological Exam Present: alert, oriented X3, CN II-XII intact - Routine Psychiatric Exam Present: cooperative Assessment and Plan (1) Severe sepsis with acute organ dysfunction Status: Acute Category: Medical Code(s): A41.9 - Sepsis, unspecified organism; R65.20 - Severe sepsis without septic shock (2) NELL (acute kidney injury) Status: Acute Category: Medical Code(s): N17.9 - Acute kidney failure, unspecified (3) Transaminitis Status: Acute Category: Medical Code(s): R74.01 - Elevation of levels of liver transaminase levels (4) Lesion of bladder Status: Acute Category: Medical Code(s): N32.9 - Bladder disorder, unspecified (5) Tobacco use Status: Chronic Category: Social Hx Code(s): Z72.0 - Tobacco use (6) Obesity (BMI 30-39.9) Status: Chronic Category: Medical Code(s): E66.9 - Obesity, unspecified (7) Neuropathy Status: Chronic Category: Medical Code(s): G62.9 - Polyneuropathy, unspecified (8) Hyponatremia Status: Acute Category: Medical Code(s): E87.1 - Hypo-osmolality and hyponatremia (9) UTI (urinary tract infection) Status: Acute Qualifiers: Urinary tract infection type: site unspecified Hematuria presence: without hematuria Qualified Code(s): N39.0 - Urinary tract infection, site not specified Category: Medical Code(s): N39.0 - Urinary tract infection, site not specified (10) Enteritis Status: Acute Category: Medical Code(s): K52.9 - Noninfective gastroenteritis and colitis, unspecified
[2021-03-17 16:00] VITALS: BP 120/70; PULSE 91; RESP 18; TEMP 36.7; O2SAT 95
--- NOTE | 2021-03-17 18:57 | PC.NURSE ---
SHE IS AOX4, ABLE TO MAKE NEEDS KNOWN TO STAFF, VSS T/O SHIFT, SHE HAS RESTED IN BED FOR MOST OF SHIFT, ADMIN PROTONIX AND REGLAN THIS AFTERNOON R/T C/O HEARTBURN, PT STATES GOOD EFFECTIVENESS ACHIEVED. SHE HAS BEEN TOLERATING PO INTAKE WELL. NO NEEDS AT THIS TIME.
[2021-03-17 20:00] VITALS: BP 134/76; PULSE 90; RESP 18; TEMP 36.6; O2SAT 97
[2021-03-18] VITALS: BP 144/79; PULSE 89; RESP 17; TEMP 36.6; O2SAT 95
[2021-03-18 04:00] VITALS: BP 147/86; PULSE 91; RESP 17; TEMP 36.6; O2SAT 95
[2021-03-18 05:00] VITALS: BMI 38.0
--- NOTE | 2021-03-18 06:39 | PC.NURSE ---
A&OX4. TOLERATING RA WELL. PTS PAIN AND HEART BURN HAVE SEEMED TO IMPROVE TONIGHT. PT HAS SLEPT MAJORITY OF SHIFT. VSS WILL CONTINUE TO MONITOR.
[2021-03-18 06:53] LABS: Basophils # 0.1 K/mm3 (0-0.2); Basophils % 0.4 % (0.1-2.0); Eosinophils # 0.1 K/mm3 (0.0-0.4); Eosinophils % 0.3 % (0.1-12.0); Hematocrit 39.6 % (37.0-47.0); Hemoglobin 12.7 g/dL (12.2-16.2); Mean Corpuscular Hemoglobin 30.4 pg (27.0-31.2); Mean Corpuscular Volume 94.9 fl (81-99); Mean Platelet Volume 8.6 fl (7.4-10.4); Monocytes # 0.9 K/mm3 (0.1-1.0); Monocytes % 4.7 % (1.7-9.3); Neutrophils # 17.3 K/mm3 (1.8-7.8); Neutrophils % 89.6 % (37.0-80.0); Platelet Count 388 K/mm3 (142-424); Red Blood Count 4.17 M/mm3 (4.20-5.40); Red Cell Distribution Width 13.4 % (11.5-17.5); White Blood Count 19.4 K/mm3 (4.8-10.8)
[2021-03-18 06:54] LABS: Chloride 108 mmol/L (98-107); Sodium 136 mmol/L (136-145)
[2021-03-18 06:57] LABS: Alanine Aminotransferase 177 U/L (12-78); Alkaline Phosphatase 96 U/L (38-126); Anion Gap 11.7 mEq/L (5-15); Aspartate Amino Transferase 56 U/L (14-36); Bilirubin,Direct 0.3 mg/dl (0.0-0.4); Bilirubin,Total 0.3 mg/dl (0.2-1.3); Blood Urea Nitrogen 43 mg/dl (7-17); Calcium 7.9 mg/dl (8.4-10.2); Carbon Dioxide 19 mmol/L (22.0-30.0); Creatinine Clearance Estimated 57 mL/min (50-200); Estimated Glomerular Filt Rate 35 ml/min (>60); GFR (African American) 43 ML/MIN (>60); Glucose 112 mg/dl (74-100); Lipase 514 U/L (23-300); Magnesium 1.6 mg/dl (1.6-2.3)
[2021-03-18 06:58] LABS: Albumin Level 2.6 g/dl (3.5-5.0); Total Protein,Serum 5.1 g/dl (6.3-8.2)
[2021-03-18 07:05] LABS: MANUAL DIFFERENTIAL MANUAL DIFFERENTIAL (MANUAL DIFF)
[2021-03-18 07:24] LABS: Potassium 2.7 mmoL/L (3.5-5.1)
--- NOTE | 2021-03-18 07:37 | PC.NURSE ---
CRITICAL LAB REPORTED. NAME, AND ROOM NUMBER VERIFIED WITH LAB. CALLED CRITICAL TO MD WELLS. NNO.
[2021-03-18 07:59] VITALS: BP 152/84; PULSE 94; RESP 18; TEMP 36.3; O2SAT 94
[2021-03-18 08:26] LABS: Eosinophils % 1 % (0-3); Lymphocytes % 7 % (10-50); Monocytes % 11 % (2-9); Neutrophils % 80 % (42-76); Platelet Estimate Normal; Total Cells Counted 100
[2021-03-18 10:13] LABS: Adenovirus F 40/41, stool Not Detected (NotDetected); Astrovirus Not Detected (NotDetected); Campylobacter Not Detected (NotDetected); Clostridium Difficile A/B, PCR Not Detected (NotDetected); Cryptosporidium Not Detected (NotDetected); Cyclospora Cayetanesis Not Detected (NotDetected); Entamoeba histolytica Not Detected (NotDetected); Enteroaggregative E coli Not Detected (NotDetected); Enterotoxigenic E coli Not Detected (NotDetected); Giardia lamblia Not Detected (NotDetected); Norovirus Not Detected (NotDetected); Plesimonas Shigalloides, PCR Not Detected (NotDetected); Rotavirus A Not Detected (NotDetected); Salmonella, PCR Not Detected (NotDetected); Sapovirus Not Detected (NotDetected); Shiga-like toxin E coli Not Detected (NotDetected); Shigella Enterovasive E coli Not Detected (NotDetected); Vibrio Cholerae Not Detected (NotDetected); Vibrio, PCR Not Detected (NotDetected); Yersinia Entercolitica, PCR Not Detected (NotDetected)
--- NOTE | 2021-03-18 10:13 | HMH.ACPN2 ---
Internal Medicine - PN: Subj *Date: 03/18/21 *Time: 10:13 Interval history: some better but has diarrhea and low k - will do diarrhea panel - renal function better Exam Vital signs and Labs for Last 24 Hours: Temp Pulse Resp BP Pulse Ox 97.3 F L 94 H 18 152/84 H 94 L 03/18/21 07:59 03/18/21 07:59 03/18/21 07:59 03/18/21 07:59 03/18/21 07:59 Laboratory Results - last 24 hr 03/17/21 06:41: Total Counted 100, Neutrophils % (Manual) 70, Band Neutrophils % 10.0 H, Lymphocytes % (Manual) 10, Atypical Lymphs % 1.0, Monocytes % (Manual) 6, Eosinophils % (Manual) 1, Metamyelocytes % 2.0 H, Platelet Estimate Normal 03/18/21 06:26: WBC 19.4 H, RBC 4.17 L, Hgb 12.7, Hct 39.6, MCV 94.9, MCH 30.4, MCHC 32.0, RDW 13.4, Plt Count 388, MPV 8.6, Neut % (Auto) 89.6 H, Lymph % (Auto) 5.0 L, [place] % (Auto) 4.7, Eos % (Auto) 0.3, Baso % (Auto) 0.4, Neut # (Auto) 17.3 H, Lymph # (Auto) 1.0, [place] # (Auto) 0.9, Eos # (Auto) 0.1, Baso # (Auto) 0.1, Total Counted 100, Neutrophils % (Manual) 80 H, Lymphocytes % (Manual) 7 L, Monocytes % (Manual) 11 H, Eosinophils % (Manual) 1, Basophils % (Manual) 1.0, Platelet Estimate Normal 03/18/21 06:26: Sodium 136, Potassium 2.7 L*, Chloride 108 H, Carbon Dioxide 19 L, Anion Gap 11.7, BUN 43 H D, Creatinine 1.50 H D, Estimated Creat Clear 57, Estimated GFR 35 L, Est GFR ( Amer) 43 L D, Glucose 112 H D, Calcium 7.9 L, Magnesium 1.6 D, Total Bilirubin 0.3, Direct Bilirubin 0.3, Conjugated Bilirubin 0.0, Indirect Bilirubin 0.0, Unconjugated Bilirubin 0.0, AST 56 H D, ALT 177 H D, Alkaline Phosphatase 96, Total Protein 5.1 L, Albumin 2.6 L D, Lipase 514 H I & O for Last 24 hours: Intake & Output 03/15/21 03/16/21 03/17/21 03/18/21 11:59 11:59 11:59 11:59 Intake Total 3285 / 3285 480 / 480 6795 / 6795 Balance 3285 / 3285 480 / 480 6795 / 6795 Weight 201 lb 3 oz 201 lb 3 oz 201 lb 2 oz Microbiology Reports for the Last 24 Hours: Microbiology 03/16/21 06:11 Blood - Other Blood Culture - Preliminary NO GROWTH AFTER 48 HOURS 03/15/21 18:40 Urine,Clean Catch Urine Culture - Final NO GROWTH AFTER 48 HOURS 03/15/21 18:00 Blood - Other Blood Culture - Preliminary NO GROWTH AFTER 48 HOURS - Constitutional no acute distress - *Routine HEENT Exam Head: Present: normocephalic Eye: Present: EOMI, PERRL ENT: Present: mucous membranes dry - *Routine Neck Exam Absent: JVD - *Routine Respiratory Exam Present: CTA bilaterally - *Routine Cardiovascular Exam Present: RRR - *Routine Abdominal Exam Present: soft. Absent: tenderness - *Routine Extremities Exam Absent: calf tenderness - *Routine Skin Exam Present: intact - *Routine Neurological Exam Present: alert, CN II-XII intact - Routine Psychiatric Exam Present: normal affect Assessment and Plan (1) Severe sepsis with acute organ dysfunction Status: Acute Category: Medical Code(s): A41.9 - Sepsis, unspecified organism; R65.20 - Severe sepsis without septic shock (2) NELL (acute kidney injury) Status: Acute Category: Medical Code(s): N17.9 - Acute kidney failure, unspecified (3) Transaminitis Status: Acute Category: Medical Code(s): R74.01 - Elevation of levels of liver transaminase levels (4) Lesion of bladder Status: Acute Category: Medical Code(s): N32.9 - Bladder disorder, unspecified (5) Tobacco use Status: Chronic Category: Social Hx Code(s): Z72.0 - Tobacco use (6) Obesity (BMI 30-39.9) Status: Chronic Category: Medical Code(s): E66.9 - Obesity, unspecified (7) Neuropathy Status: Chronic Category: Medical Code(s): G62.9 - Polyneuropathy, unspecified (8) Hyponatremia Status: Acute Category: Medical Code(s): E87.1 - Hypo-osmolality and hyponatremia (9) UTI (urinary tract infection) Status: Acute Qualifiers: Urinary tract infection type: site unspecif
[2021-03-18 11:43] VITALS: BP 156/88; PULSE 86; RESP 18; TEMP 36.5; O2SAT 98
[2021-03-18 12:10] LABS: Enteropathogenic E coli Detected (NotDetected)
[2021-03-18 13:23] VITALS: BMI 37.8
[2021-03-18 15:21] VITALS: BP 152/91; PULSE 100; RESP 22; TEMP 36.8; O2SAT 95
--- NOTE | 2021-03-18 17:28 | PC.NURSE ---
Pt is alert and oriented. She has ambulated to the bathroom w/1 assist. Stool is watery. Specimen was collected and sent to lab. Results phones to Dr Clark's office. No change from morning assessment.
[2021-03-18 19:25] VITALS: BP 150/82; PULSE 87; RESP 18; TEMP 36.6; O2SAT 94
[2021-03-19 04:00] VITALS: BP 152/76; PULSE 84; RESP 19; TEMP 36.7; O2SAT 94
[2021-03-19 05:00] VITALS: BMI 37.8
[2021-03-19 07:54] LABS: Chloride 110 mmol/L (98-107); Sodium 138 mmol/L (136-145)
[2021-03-19 07:56] LABS: Basophils # 0.1 K/mm3 (0-0.2); Basophils % 0.4 % (0.1-2.0); Eosinophils # 0.1 K/mm3 (0.0-0.4); Eosinophils % 0.5 % (0.1-12.0); Hematocrit 39.3 % (37.0-47.0); Hemoglobin 12.8 g/dL (12.2-16.2); Lymphocytes # 1.1 K/mm3 (0.7-4.5); Lymphocytes % 5.5 % (10-50); Mean Corpuscular HGB Conc 32.5 g/dL (31.8-35.4); Mean Corpuscular Hemoglobin 30.6 pg (27.0-31.2); Mean Corpuscular Volume 94.1 fl (81-99); Mean Platelet Volume 8.4 fl (7.4-10.4); Monocytes # 0.8 K/mm3 (0.1-1.0); Monocytes % 4.2 % (1.7-9.3); Neutrophils # 17.7 K/mm3 (1.8-7.8); Neutrophils % 89.4 % (37.0-80.0); Platelet Count 359 K/mm3 (142-424); Red Blood Count 4.18 M/mm3 (4.20-5.40); Red Cell Distribution Width 13.8 % (11.5-17.5); White Blood Count 19.8 K/mm3 (4.8-10.8)
[2021-03-19 07:57] LABS: Blood Urea Nitrogen 28 mg/dl (7-17); Creatinine Clearance Estimated 78 mL/min (50-200); Estimated Glomerular Filt Rate 51 ml/min (>60); GFR (African American) 61 ML/MIN (>60)
[2021-03-19 07:58] LABS: Anion Gap 13.9 mEq/L (5-15); Calcium 8.2 mg/dl (8.4-10.2); Carbon Dioxide 17 mmol/L (22.0-30.0); Glucose 90 mg/dl (74-100)
[2021-03-19 07:59] LABS: MANUAL DIFFERENTIAL MANUAL DIFFERENTIAL (MANUAL DIFF)
[2021-03-19 08:00] VITALS: BP 147/80; PULSE 89; RESP 19; TEMP 36.5; O2SAT 95
[2021-03-19 08:10] LABS: Potassium 2.9 mmoL/L (3.5-5.1)
[2021-03-19 08:29] LABS: Lymphocytes % 8 % (10-50); Monocytes % 7 % (2-9); Neutrophils % 85 % (42-76); Platelet Estimate Normal; RBC Morphology Normal; Total Cells Counted 100
--- NOTE | 2021-03-19 08:59 | HMH.DCSUM ---
General - General Admission date:: 03/15/21 Discharge date: 03/19/21 HPI HPI: this patient reports weak with dec po intake - pt was seen in the ed -1yo F presents the emergency department secondary abdominal pain. Patient reports she was seen at her PCPs clinic, Dr. Clark, and directed to the emergency department for further testing. She states she developed abdominal pain with diarrhea on Thursday. States the diarrhea stopped yesterday. She has had intermittent fevers. She denies vomiting. She denies seeing blood in her stool. Had a colonoscopy in the past with normal result. No history of IBD, IBS, colitis. Status post appendectomy, cholecystectomy, hysterectomy. 1yo F presents the emergency department secondary abdominal pain. Patient reports she was seen at her PCPs clinic, Dr. Clark, and directed to the emergency department for further testing. She states she developed abdominal pain with diarrhea on Thursday. States the diarrhea stopped yesterday. She has had intermittent fevers. She denies vomiting. She denies seeing blood in her stool. Had a colonoscopy in the past with normal result. No history of IBD, IBS, colitis. Status post appendectomy, cholecystectomy, hysterectomy. pt admitted for ivf at this time Hospital Course Hospital Course: this patient reports weak with dec po intake - pt was seen in the ed -1yo F presents the emergency department secondary abdominal pain. Patient reports she was seen at her PCPs clinic, Dr. Clark, and directed to the emergency department for further testing. She states she developed abdominal pain with diarrhea on Thursday. States the diarrhea stopped yesterday. She has had intermittent fevers. She denies vomiting. She denies seeing blood in her stool. Had a colonoscopy in the past with normal result. No history of IBD, IBS, colitis. Status post appendectomy, cholecystectomy, hysterectomy. 1yo F presents the emergency department secondary abdominal pain. Patient reports she was seen at her PCPs clinic, Dr. Clark, and directed to the emergency department for further testing. She states she developed abdominal pain with diarrhea on Thursday. States the diarrhea stopped yesterday. She has had intermittent fevers. She denies vomiting. She denies seeing blood in her stool. Had a colonoscopy in the past with normal result. No history of IBD, IBS, colitis. Status post appendectomy, cholecystectomy, hysterectomy. pt admitted for ivf at this time 03/15/21 Abd/Pelvis CT: FINDINGS: Lungs: Calcified pulmonary nodule seen in the right base. Mild bibasilar atelectasis. Liver: Normal. No mass. Gallbladder and bile ducts: Gallbladder is either surgically absent or contracted. Pancreas: Normal. No ductal dilation. Spleen: Normal. No splenomegaly. Adrenal glands: Normal. No mass. Kidneys and ureters: Hyperattenuating bilateral medullary pyramids. No hydronephrosis. Stomach and bowel: Mild diverticulosis noted. No CT evidence of diverticulitis. There is some mild diffuse wall thickening of the colon and small bowel. Numerous loops of mildly dilated small bowel are seen. Mild stranding noted as well. A transition point is not identified. These findings are most compatible with ileus. Obstruction not favored. Appendix: No evidence of appendicitis. Intraperitoneal space: Trace free fluid. Vasculature: Unremarkable. No abdominal aortic aneurysm. Lymph nodes: Mildly prominent retroperitoneal lymph nodes. Urinary bladder: Bladder is under distended. There is a partially calcified structure that appears to be arising from the anterior superior bladder. It measures about 43 x 20 mm in transverse dimensions and about 3 cm in the CC dimension. Reproductive: Status post hysterectomy. Bones/joints: Unremarkable. No acute fracture. Soft tissues: Unremarkable. Other findings: Elevated left hemidiaphragm. IMPRESSION: 1. Findings most compatible with enteritis/colitis and asso
--- NOTE | 2021-03-19 09:01 | PC.NURSE ---
late entry: pt. had several loose, watery bm's. Pt. noted to be soa with ambulation. standby assist to br. No c/o n/v, pain or dizziness.
== END 2021-03-19 12:00 | disposition home or self-care (01) | DRG 871 ==
LOC: ER 17:04 → 2ND 19:18
PROVIDERS: Nurse Practitioner Family; Admitting Provider Internal Medicine Adolescent Medicine; Emergency Provider Family Medicine; PCP Emergency Medicine; Visit Provider Emergency Medicine
DX: A41.9 Sepsis, unspecified organism (principal); R65.21 Severe sepsis with septic shock; N17.9 Acute kidney failure, unspecified; N39.0 Urinary tract infection, site not specified; E87.1 Hypo-osmolality and hyponatremia; Z20.822 Contact with and (suspected) exposure to COVID-19; K21.9 Gastro-esophageal reflux disease without esophagitis; G43.909 Migraine, unspecified, not intractable, without status migrainosus; I10 Essential (primary) hypertension; F17.210 Nicotine dependence, cigarettes, uncomplicated; E66.9 Obesity, unspecified; Z68.37 Body mass index [BMI] 37.0-37.9, adult; G62.9 Polyneuropathy, unspecified; K52.9 Noninfective gastroenteritis and colitis, unspecified; N32.9 Bladder disorder, unspecified; J44.9 Chronic obstructive pulmonary disease, unspecified; Z86.73 Personal history of transient ischemic attack (TIA), and cerebral infarction without residual deficits
CPT/HCPCS: 36415; 71046; 74176; 80048; 80053; 80076; 81001; 83605; 83690; 83735; 85007; 85025; 87040; 87086; 87507; 96365; 96366; 99284; J2405; J2543; U0003

== ENCOUNTER → 2021-04-02 10:27 | Outpatient (CLI) | payer MEDICAID, SELFPAY ==
--- NOTE | 2021-04-02 10:56 | XR_ITS ---
PROCEDURE: XR ACUTE ABDOMEN SERIES CLINICAL INDICATION: diarrhea COMPARISON: CT CT ABDOMEN PELVIS WO CON from 03/15/2021 CR XR CHEST 2V from 03/15/2021 FINDINGS: Frontal view of the chest shows elevated left hemidiaphragm. Normal heart size. Left basilar atelectasis is noted. Upright and supine views of the abdomen show diffusely distended small and large bowel loops with air-fluid levels consistent with a diffuse ileus. Large bowel loops measure up to 12 cm in diameter. There are small bowel loops which are also distended measuring up to a 4 cm. No obvious free air. IMPRESSION: Diffusely distended large and small bowel loops with air-fluid levels consistent with severe ileus. Bowel obstruction is not excluded. Dictated by: Roger Gustafson MD 04/02/2021 11:27 Roger Gustafson MD in [facility] 04/02/2021 11:27
== END ==
PROVIDERS: PCP Emergency Medicine; Visit Provider Emergency Medicine
DX: R19.7 Diarrhea, unspecified (principal)
CPT/HCPCS: 74021

== ENCOUNTER 2021-04-02 12:31 | Emergency (ER) | payer MEDICAID, SELFPAY ==
[2021-04-02 12:33] VITALS: BP 122/51; PULSE 102; RESP 18; TEMP 36.9; O2SAT 96; BMI 36.7
[2021-04-02 13:04] LABS: Basophils # 0.1 K/mm3 (0-0.2); Basophils % 0.5 % (0.1-2.0); Eosinophils # 0.1 K/mm3 (0.0-0.4); Eosinophils % 0.5 % (0.1-12.0); Hematocrit 39.4 % (37.0-47.0); Hemoglobin 12.8 g/dL (12.2-16.2); Lymphocytes % 9.9 % (10-50); Mean Corpuscular HGB Conc 32.6 g/dL (31.8-35.4); Mean Corpuscular Hemoglobin 29.7 pg (27.0-31.2); Mean Corpuscular Volume 91.3 fl (81-99); Mean Platelet Volume 7.6 fl (7.4-10.4); Monocytes # 0.5 K/mm3 (0.1-1.0); Monocytes % 5.1 % (1.7-9.3); Neutrophils # 8.1 K/mm3 (1.8-7.8); Platelet Count 328 K/mm3 (142-424); Red Blood Count 4.32 M/mm3 (4.20-5.40); Red Cell Distribution Width 13.5 % (11.5-17.5); White Blood Count 9.6 K/mm3 (4.8-10.8)
[2021-04-02 13:10] LABS: Chloride 93 mmol/L (98-107); Sodium 128 mmol/L (136-145)
[2021-04-02 13:12] LABS: Blood Urea Nitrogen 26 mg/dl (7-17); Creatinine Clearance Estimated 78 mL/min (50-200); Estimated Glomerular Filt Rate 51 ml/min (>60); GFR (African American) 61 ML/MIN (>60)
[2021-04-02 13:13] LABS: Alanine Aminotransferase 24 U/L (12-78); Albumin Level 2.8 g/dl (3.5-5.0); Albumin/Globulin Ratio 0.9 (1.1-1.8); Alkaline Phosphatase 156 U/L (38-126); Anion Gap 14.9 mEq/L (5-15); Aspartate Amino Transferase 27 U/L (14-36); Bilirubin,Total 0.8 mg/dl (0.2-1.3); Calcium 6.6 mg/dl (8.4-10.2); Carbon Dioxide 22 mmol/L (22.0-30.0); Glucose 98 mg/dl (74-100); Lipase 68 U/L (23-300); Total Protein,Serum 5.8 g/dl (6.3-8.2)
[2021-04-02 13:18] LABS: Potassium 1.9 mmoL/L (3.5-5.1)
--- NOTE | 2021-04-02 13:20 | HMH.EDGENADL ---
ED Disposition Clinical Impression: Ileus, Hypokalemia Disposition: Home, Self-Care Condition on Discharge: Fair Instructions: DI for Acute Abdominal Pain Referrals: Cipriano Clark MD [Primary Care Provider] - 04/03/21 Time of Disposition: 15:28 - Critical Care Critical Care Time: No Attestation: On 04/02/21, the high probability of a clinically significant, sudden or life threatening deterioration of the following system(s) required my full and direct attention, intervention and personal management. The time I documented below is in addition to time spent performing reported procedures but includes the following listed in this critical care notation. Medical Decision Making - Medical Records Medical records reviewed: Yes: I reviewed the patient's medical records. - Elian Inquiry Pt receiving controlled substance: No Vital Signs: 04/02/21 12:33 Temperature 98.5 F Temperature Source Oral Pulse Rate [Left Radial] 102 H Respiratory Rate 18 Blood Pressure [Right Arm] 122/51 L Blood Pressure Mean [Right Arm] 74 Blood Pressure Source [Right Arm] Automatic Cuff Blood Pressure Position [Right Arm] Sitting 02 Sat by Pulse Oximetry 96 Oxygen Delivery Method Room Air - Lab Data Lab results reviewed: Yes: I reviewed the patient's lab results. Lab Results 04/02/21 12:50: WBC 9.6, RBC 4.32, Hgb 12.8, Hct 39.4, MCV 91.3, MCH 29.7, MCHC 32.6, RDW 13.5, Plt Count 328, MPV 7.6, Neut % (Auto) 84.0 H, Lymph % (Auto) 9.9 L, [place] % (Auto) 5.1, Eos % (Auto) 0.5, Baso % (Auto) 0.5, Neut # (Auto) 8.1 H, Lymph # (Auto) 1.0, [place] # (Auto) 0.5, Eos # (Auto) 0.1, Baso # (Auto) 0.1 04/02/21 12:50: Sodium 128 L, Potassium 1.9 L*, Chloride 93 L, Carbon Dioxide 22, Anion Gap 14.9, BUN 26 H, Creatinine 1.10 H, Estimated Creat Clear 78, Estimated GFR 51 L, Est GFR ( Amer) 61, Glucose 98, Calcium 6.6 L, Total Bilirubin 0.8, AST 27, ALT 24, Alkaline Phosphatase 156 H, Total Protein 5.8 L, Albumin 2.8 L, Globulin 3.0, Albumin/Globulin Ratio 0.9 L, Lipase 68 04/02/21 12:50: ESR 111 H 04/02/21 12:50: C-Reactive Protein 161.4 H Result diagrams: 04/02/21 12:50 04/02/21 12:50 Orders (Tests/Meds): ED MEDICATIONS Generic Name Dose Route Start Last Admin Trade Name Freq PRN Reason Stop Dose Admin Potassium Chloride/Water 100 mls @ 100 mls/hr 04/02/21 13:30 04/02/21 14:29 Potassium Chloride 10meq/100ml Ivpb IV 04/02/21 16:29 100 mls/hr Q1H LATISHA Administration Lactated Ringer's 1,000 mls @ 999 mls/hr 04/02/21 14:30 04/02/21 14:32 Lactated Ringer's 1000 Ml Bag IV 04/02/21 15:30 999 mls/hr .Q1H1M LATISHA Administration Discontinued Medications Generic Name Dose Route Start Last Admin Trade Name Freq PRN Reason Stop Dose Admin Iopamidol 75 ml 04/02/21 14:04 04/02/21 14:06 Iopamidol-370 (76%);100ml Bottle IV 04/02/21 14:05 75 ml ONCE ONE Administration Sodium Chloride 10 ml 04/02/21 14:04 04/02/21 14:06 Sodium Chloride 0.9% 10ml Syr (Rad Only) IV 04/02/21 14:05 10 ml ONCE ONE Administration ORDERS Category Date Time Status Diarrhea 23 Panel, PCR Stat Lab 04/02/21 13:43 Ordered Urinalysis and Microscopic Stat Lab 04/02/21 12:39 Ordered - CT Data CT Scan: Abdomen, Pelvis Time Received: 15:[address] Reviewed: Yes: I have reviewed the patient's CT results Preliminary Findings: Abnormal Findings Narrative: Likely small bowel and large bowel ileus without transition point or sign of obstruction. Medical Decision Narrative: 61yo F who reports she was sent here by her PCP after x-ray was obtained and concern for bowel obstruction. Patient is in no acute distress on initial evaluation. Chart review shows she had an x-ray today as described with dilated loops of large and small bowel. Laboratory studies were ordered and the patient's kidney function is acceptable she was therefore sent for CT of the abdomen pelvis with contrast for further evaluation. Patient found to have a
--- NOTE | 2021-04-02 13:24 | CT_ITS ---
PROCEDURE: CT ABDOMEN PELVIS W CON CLINICAL INDICATION: possible obstruction COMPARISON: CT CT ABDOMEN PELVIS WO CON from 03/15/2021 CR XR ACUTE ABDOMEN SERIES from 04/02/2021 TECHNIQUE: IV Contrast: 75ML Isovue 370 Oral Contrast None Axial images obtained with sagittal and coronal reformats. All CT scans at the facility use one or more dose reduction, viz: automated exposure control, ma/kV adjustment per patient size (including targeted exams where dose is matched to indication, i.e. head), or iterative reconstruction technique. FINDINGS: LOWER THORAX: There is elevated left hemidiaphragm with atelectatic changes in the left lower lobe and lingula. The ABDOMEN & PELVIS: The liver, spleen, adrenal glands, pancreas, and kidneys have an unremarkable appearance. There is diffuse distension of the cecum, ascending colon, and transverse colon transitioning to more normal caliber in the mid aspect of the splenic flexure with decompressed colon distal to this region. Distended large bowel loops measure up to approximately 9 cm. There are fluid-filled loops of small bowel and gaseous distended loops of small bowel with air-fluid levels with some small bowel loops measuring up to 5 cm in diameter. There is an air fluid level in the stomach which is mildly distended. There may be some minimal small bowel wall enhancement best seen on series 601 image 33 through 38 left lower quadrant. IMPRESSION: Diffuse distention of both large and small bowel as described above without focal transition point in keeping with colonic and small bowel ileus. The bowel distension is greater than when compared to the previous exam. No free air is evident. No portal venous gas. Questionable minimal small-bowel wall enhancement and thickening in the left lower quadrant Dictated by: Roger Gustafson MD 04/02/2021 15:03 Roger Gustafson MD in [facility] 04/02/2021 15:03
[2021-04-02 14:13] LABS: C-Reactive Protein 161.4 mg/L (0-4)
[2021-04-02 14:30] VITALS: BP 110/61; PULSE 100; O2SAT 96
[2021-04-02 15:00] VITALS: BP 122/60; PULSE 100; O2SAT 98
--- NOTE | 2021-04-02 15:21 | PC.NURSE ---
I SPOKE WITH DR WELLS HE WANTS PT TO STAY IN THE HOSP DUE TO CT RESULTS AND TO RECEIVE POTASSIUM , PT REFUSES TO BE ADMITTED SHE WILL NOT TAKE THE POTASSIUM IV. DR WELLS AWARE OF PT DECISION TO GO HOME AND DR MORAN AWARE HE ALSO SPOKE TO PT AND SHE STILL WANTS TO GO HOME
[2021-04-02 15:24] LABS: Erythrocyte Sedimentation Rate 111 mm/hr (0-30)
[2021-04-02 15:30] VITALS: BP 136/61; PULSE 100; O2SAT 99
[2021-04-02 16:06] VITALS: BP 136/61; PULSE 76; RESP 18; TEMP 36.9; O2SAT 98
== END 2021-04-02 16:07 | disposition home or self-care (01) ==
PROVIDERS: Emergency Provider Family Medicine; PCP Emergency Medicine
DX: K56.7 Ileus, unspecified (principal); E87.6 Hypokalemia; I10 Essential (primary) hypertension; K21.9 Gastro-esophageal reflux disease without esophagitis; J44.9 Chronic obstructive pulmonary disease, unspecified; Z88.2 Allergy status to sulfonamides; Z88.5 Allergy status to narcotic agent; Z79.899 Other long term (current) drug therapy
CPT/HCPCS: 74177; 80053; 83690; 85025; 85651; 86140; 96365; 99283; Q9967